=== PATIENT | male | born 1935 | race Two or more races ===

== ENCOUNTER 2017-10-03 16:08 | Inpatient (IN) | payer MEDICARE, OTHER ==
[2017-10-03] MEDS: PANTOPRAZOLE 40 MG INJ IV (20:06)
[2017-10-03 20:12] LABS: ADD MAN DIFF? NO
[2017-10-03 20:13] LABS: BASOPHILS % 0.3 % (0.0-2.0); EOSINOPHILS # 0.1 10^3/ul (0.0-0.5); EOSINOPHILS % 0.7 % (0.0-7.0); HEMATOCRIT 27.6 % (42.0-52.0); HEMOGLOBIN 9.4 g/dl (14.0-18.0); LYMPHOCYTES # 1.1 10^3/ul (0.8-2.9); LYMPHOCYTES % 12.5 % (15.0-51.0); MEAN CORPUSCULAR HEMOGLOBIN 28.9 pg (29.0-33.0); MEAN CORPUSCULAR HGB CONC 34.1 g/dl (32.0-37.0); MEAN CORPUSCULAR VOLUME 84.9 fl (82.0-101.0); MEAN PLATELET VOLUME 9.3 fl (7.4-10.4); MONOCYTES % 11.1 % (0.0-11.0); NEUTROPHIL # 6.7 10^3/ul (1.6-7.5); NEUTROPHILS % 74.7 % (39.0-77.0); PLATELET COUNT 235 10^3/UL (140-415); RED BLOOD COUNT 3.25 10^6/ul (4.70-6.10); RED CELL DISTRIBUTION WIDTH 13.8 % (11.5-14.5)
[2017-10-03 20:31] LABS: INR 1.16; PT RATIO 1.2
[2017-10-03 20:32] LABS: PARTIAL THROMBOPLASTIN TIME 34.8 Sec (25.0-35.0)
[2017-10-03 20:36] LABS: ALANINE AMINOTRANSFERASE 34 IU/L (13-69); ALBUMIN 3.4 g/dl (3.3-4.9); ALBUMIN/GLOBULIN RATIO 1.25; ALKALINE PHOSPHATASE 80 IU/L (42-121); ANION GAP 18 (8-16); ASPARTATE AMINO TRANSFERASE 36 IU/L (15-46); BILIRUBIN,INDIRECT 0.6 mg/dl (0-1.1); BILIRUBIN,TOTAL 0.6 mg/dl (0.2-1.3); BLOOD UREA NITROGEN 21 mg/dl (7-20); CALCIUM 8.9 mg/dl (8.4-10.2); CARBON DIOXIDE 24 mmol/L (21-31); CHLORIDE 95 mmol/L (97-110); CREATININE 1.21 mg/dl (0.61-1.24); GLUCOSE 118 mg/dl (70-220); POTASSIUM 4.5 mmol/L (3.5-5.1); SODIUM 132 mmol/L (135-144); TOTAL PROTEIN 6.1 g/dl (6.1-8.1)
[2017-10-03 20:52] LABS: TROPONIN-I < 0.012 ng/ml (0.00-0.12)
[2017-10-03] MEDS ORDERED: ACETAMINOPHEN 325 MG TAB PO (21:00)
[2017-10-03] MEDS ORDERED: ONDANSETRON 4 MG INJ IV (21:00)
[2017-10-03] MEDS ORDERED: morphine 2 MG INJ IV (21:30)
[2017-10-03] MEDS ORDERED: NACL 0.9% 3 ML SYG IV (21:30)
[2017-10-03] MEDS: SOD CHLORIDE 0.9% 1,000 ML IV (21:39)
[2017-10-03] MEDS: FAMOTIDINE 20 MG INJ IV (21:55)
[2017-10-04 05:55] LABS: ADD MAN DIFF? NO
[2017-10-04 06:03] LABS: BASOPHILS % 0.3 % (0.0-2.0); EOSINOPHILS # 0.1 10^3/ul (0.0-0.5); EOSINOPHILS % 1.3 % (0.0-7.0); HEMATOCRIT 24.4 % (42.0-52.0); HEMOGLOBIN 8.3 g/dl (14.0-18.0); LYMPHOCYTES # 0.9 10^3/ul (0.8-2.9); LYMPHOCYTES % 14.9 % (15.0-51.0); MEAN CORPUSCULAR HEMOGLOBIN 28.9 pg (29.0-33.0); MEAN PLATELET VOLUME 9.9 fl (7.4-10.4); MONOCYTE # 0.9 10^3/ul (0.3-0.9); MONOCYTES % 14.6 % (0.0-11.0); NEUTROPHIL # 4.2 10^3/ul (1.6-7.5); NEUTROPHILS % 68.2 % (39.0-77.0); PLATELET COUNT 221 10^3/UL (140-415); RED BLOOD COUNT 2.87 10^6/ul (4.70-6.10); RED CELL DISTRIBUTION WIDTH 13.9 % (11.5-14.5)
[2017-10-04 06:03] LABS: WHITE BLOOD COUNT 6.1 10^3/ul (4.8-10.8)
[2017-10-04 06:25] LABS: ALANINE AMINOTRANSFERASE 33 IU/L (13-69); ALKALINE PHOSPHATASE 70 IU/L (42-121); ANION GAP 11 (8-16); ASPARTATE AMINO TRANSFERASE 31 IU/L (15-46); BILIRUBIN,INDIRECT 0.7 mg/dl (0-1.1); BILIRUBIN,TOTAL 0.7 mg/dl (0.2-1.3); BLOOD UREA NITROGEN 18 mg/dl (7-20); CALCIUM 8.4 mg/dl (8.4-10.2); CARBON DIOXIDE 24 mmol/L (21-31); CHLORIDE 101 mmol/L (97-110); CREATININE 0.96 mg/dl (0.61-1.24); GLUCOSE 95 mg/dl (70-220); POTASSIUM 4.2 mmol/L (3.5-5.1); SODIUM 132 mmol/L (135-144); TOTAL PROTEIN 5.2 g/dl (6.1-8.1)
[2017-10-04 06:26] LABS: ALBUMIN 2.7 g/dl (3.3-4.9); ALBUMIN/GLOBULIN RATIO 1.08
[2017-10-04 12:49] LABS: OCCULT BLOOD STOOL POSITIVE (NEGATIVE)
[2017-10-04] MEDS: PANTOPRAZOLE 40 MG INJ IV (13:32)
[2017-10-04] MEDS: SOD CHLORIDE 0.9% 1,000 ML IV (13:33)
[2017-10-04] MEDS: PEG/ELECTROLYTES 4L BTL PO (15:04)
[2017-10-04] MEDS: ONDANSETRON 4 MG INJ IV (15:07)
[2017-10-04 19:55] LABS: B-TYPE NATRIURETIC PEPTIDE 407 PG/ML (0-450)
[2017-10-04 20:01] LABS: TROPONIN-I < 0.012 ng/ml (0.00-0.12)
[2017-10-04] MEDS: METOPROLOL (XL) 25 MG TAB PO (21:21)
[2017-10-04] MEDS: ZOLPIDEM 5 MG TAB PO ×2 (23:48)
[2017-10-05 01:49] LABS: TROPONIN-I < 0.012 ng/ml (0.00-0.12)
[2017-10-05 05:39] LABS: ADD MAN DIFF? NO
[2017-10-05 05:41] LABS: BASOPHILS % 0.2 % (0.0-2.0); EOSINOPHILS # 0.1 10^3/ul (0.0-0.5); EOSINOPHILS % 1.7 % (0.0-7.0); HEMATOCRIT 23.4 % (42.0-52.0); HEMOGLOBIN 7.9 g/dl (14.0-18.0); LYMPHOCYTES # 0.8 10^3/ul (0.8-2.9); LYMPHOCYTES % 13.3 % (15.0-51.0); MEAN CORPUSCULAR HEMOGLOBIN 28.8 pg (29.0-33.0); MEAN CORPUSCULAR HGB CONC 33.8 g/dl (32.0-37.0); MEAN CORPUSCULAR VOLUME 85.4 fl (82.0-101.0); MEAN PLATELET VOLUME 9.5 fl (7.4-10.4); MONOCYTE # 0.8 10^3/ul (0.3-0.9); MONOCYTES % 13.3 % (0.0-11.0); NEUTROPHILS % 70.6 % (39.0-77.0); PLATELET COUNT 199 10^3/UL (140-415); RED BLOOD COUNT 2.74 10^6/ul (4.70-6.10); RED CELL DISTRIBUTION WIDTH 14.3 % (11.5-14.5)
[2017-10-05 05:41] LABS: WHITE BLOOD COUNT 5.7 10^3/ul (4.8-10.8)
[2017-10-05 06:00] LABS: ANION GAP 9 (8-16); BLOOD UREA NITROGEN 13 mg/dl (7-20); CALCIUM 8.1 mg/dl (8.4-10.2); CARBON DIOXIDE 27 mmol/L (21-31); CHLORIDE 102 mmol/L (97-110); CREATININE 1.01 mg/dl (0.61-1.24); GLUCOSE 94 mg/dl (70-220); POTASSIUM 4.1 mmol/L (3.5-5.1); SODIUM 134 mmol/L (135-144)
[2017-10-05 06:08] LABS: CHOL/HDL RATIO 6.8 RATIO; HDL CHOLESTEROL 20 mg/dl (31-75); LDL CHOLESTEROL,CALCULATED 99 mg/dl; TRIGLYCERIDES 85 mg/dl (0-149)
[2017-10-05 06:08] LABS: CHOLESTEROL 136 mg/dl (100-200)
[2017-10-05] MEDS: PANTOPRAZOLE 40 MG INJ IV (06:17)
[2017-10-05] MEDS: METOPROLOL (XL) 25 MG TAB PO ×2 (08:31→20:42)
[2017-10-05] MEDS ORDERED: PANTOPRAZOLE (EC) 40 MG TAB PO (09:00)
[2017-10-05] MEDS: SOD CHLORIDE 0.9% 1,000 ML IV (13:10)
[2017-10-05 14:37] LABS: IMMEDIATE SPIN CROSSMATCH 1 2
[2017-10-05] MEDS ORDERED: PHENYLephrine (100 MCG/ML) 5ML SYG (19:06)
[2017-10-05] MEDS: PROPOFOL 40 ML (19:09)
[2017-10-05] MEDS: ZOLPIDEM 5 MG TAB PO (23:22)
[2017-10-06] MEDS: PANTOPRAZOLE 40 MG INJ IV (06:13)
[2017-10-06] MEDS: METOPROLOL (XL) 25 MG TAB PO ×2 (09:04→21:08)
[2017-10-06] MEDS: SOD CHLORIDE 0.9% 1,000 ML IV (09:04)
[2017-10-06 11:16] LABS: ADD MAN DIFF? NO
[2017-10-06 11:21] LABS: ABNORMAL IP MESSAGE 1; BASOPHILS % 0.2 % (0.0-2.0); EOSINOPHILS # 0.1 10^3/ul (0.0-0.5); EOSINOPHILS % 0.7 % (0.0-7.0); HEMATOCRIT 31.9 % (42.0-52.0); HEMOGLOBIN 10.9 g/dl (14.0-18.0); LYMPHOCYTES # 0.6 10^3/ul (0.8-2.9); MEAN CORPUSCULAR HEMOGLOBIN 29.7 pg (29.0-33.0); MEAN CORPUSCULAR HGB CONC 34.2 g/dl (32.0-37.0); MEAN CORPUSCULAR VOLUME 86.9 fl (82.0-101.0); MEAN PLATELET VOLUME 9.6 fl (7.4-10.4); MONOCYTE # 0.9 10^3/ul (0.3-0.9); MONOCYTES % 10.8 % (0.0-11.0); NEUTROPHIL # 6.6 10^3/ul (1.6-7.5); NEUTROPHILS % 80.3 % (39.0-77.0); PLATELET COUNT 233 10^3/UL (140-415); POSITIVE DIFF @See below; RED BLOOD COUNT 3.67 10^6/ul (4.70-6.10); RED CELL DISTRIBUTION WIDTH 13.8 % (11.5-14.5)
[2017-10-06 11:21] LABS: WHITE BLOOD COUNT 8.2 10^3/ul (4.8-10.8)
[2017-10-06] MEDS: ZOLPIDEM 5 MG TAB PO (23:12)
[2017-10-06] MEDS: SOD FERRIC GLUC COMPLX 125 MG in SOD CHLORIDE 0.9% 100 ML IVPB (23:52)
[2017-10-07] MEDS: PANTOPRAZOLE 40 MG INJ IV (05:57)
[2017-10-07 06:19] LABS: ADD MAN DIFF? NO
[2017-10-07 06:32] LABS: BASOPHILS % 0.2 % (0.0-2.0); EOSINOPHILS # 0.1 10^3/ul (0.0-0.5); EOSINOPHILS % 1.6 % (0.0-7.0); HEMATOCRIT 30.5 % (42.0-52.0); HEMOGLOBIN 10.4 g/dl (14.0-18.0); LYMPHOCYTES # 1.1 10^3/ul (0.8-2.9); LYMPHOCYTES % 13.7 % (15.0-51.0); MEAN CORPUSCULAR HEMOGLOBIN 29.1 pg (29.0-33.0); MEAN CORPUSCULAR HGB CONC 34.1 g/dl (32.0-37.0); MEAN CORPUSCULAR VOLUME 85.4 fl (82.0-101.0); MEAN PLATELET VOLUME 9.7 fl (7.4-10.4); MONOCYTE # 1.1 10^3/ul (0.3-0.9); MONOCYTES % 13.9 % (0.0-11.0); NEUTROPHIL # 5.7 10^3/ul (1.6-7.5); NEUTROPHILS % 69.7 % (39.0-77.0); PLATELET COUNT 239 10^3/UL (140-415); RED BLOOD COUNT 3.57 10^6/ul (4.70-6.10); RED CELL DISTRIBUTION WIDTH 13.9 % (11.5-14.5)
[2017-10-07 06:32] LABS: WHITE BLOOD COUNT 8.2 10^3/ul (4.8-10.8)
[2017-10-07 06:52] LABS: ANION GAP 9 (8-16); BLOOD UREA NITROGEN 15 mg/dl (7-20); CALCIUM 8.6 mg/dl (8.4-10.2); CARBON DIOXIDE 30 mmol/L (21-31); CHLORIDE 102 mmol/L (97-110); CREATININE 1.01 mg/dl (0.61-1.24); GLUCOSE 105 mg/dl (70-220); POTASSIUM 4.8 mmol/L (3.5-5.1); SODIUM 136 mmol/L (135-144)
[2017-10-07] MEDS: METOPROLOL (XL) 25 MG TAB PO (08:23)
[2017-10-07] MEDS: SOD FERRIC GLUC COMPLX 125 MG in SOD CHLORIDE 0.9% 100 ML IVPB (14:39)
== END 2017-10-07 16:05 | disposition home or self-care (01) | DRG 378 ==
LOC: MS2 10-04 03:06 → E/R 16:08 → MS2 20:37
PROVIDERS: Internal Medicine
PROC: 0W3P8ZZ Control Bleeding in Gastrointestinal Tract, Via Natural or Artificial Opening Endoscopic (ICD-10-PCS; principal; 2017-10-05 18:00)
PROC: 0DJD8ZZ Inspection of Lower Intestinal Tract, Via Natural or Artificial Opening Endoscopic (ICD-10-PCS; 2017-10-05 18:00)
PROC: 30233N1 Transfusion of Nonautologous Red Blood Cells into Peripheral Vein, Percutaneous Approach (ICD-10-PCS; 2017-10-05 18:00)
DX: K92.2 Gastrointestinal hemorrhage, unspecified (principal); D62 Acute posthemorrhagic anemia; C15.9 Malignant neoplasm of esophagus, unspecified; C16.0 Malignant neoplasm of cardia; I48.0 Paroxysmal atrial fibrillation; I10 Essential (primary) hypertension; K57.30 Diverticulosis of large intestine without perforation or abscess without bleeding; K64.4 Residual hemorrhoidal skin tags; K64.1 Second degree hemorrhoids
CPT/HCPCS: 36415; 36430; 80048; 80053; 80061; 82270; 83880; 84443; 84484; 85025; 85610; 85730; 86850; 86900; 86901; 86920; 88309; 88312; 88313; 93005; 93306; 96374; 96375; 99285-25

== ENCOUNTER 2018-01-02 13:25 | Inpatient (IN) | payer MEDICARE, OTHER ==
[2018-01-02] MEDS: SOD CHLORIDE 0.9% 500 ML IV (13:52)
[2018-01-02 14:06] LABS: ADD MAN DIFF? NO
[2018-01-02 14:15] LABS: BASOPHILS % 0.2 % (0.0-2.0); EOSINOPHILS # 0.1 10^3/ul (0.0-0.5); EOSINOPHILS % 0.3 % (0.0-7.0); HEMATOCRIT 37.4 % (42.0-52.0); HEMOGLOBIN 12.7 g/dl (14.0-18.0); LYMPHOCYTES # 1.3 10^3/ul (0.8-2.9); LYMPHOCYTES % 8.1 % (15.0-51.0); MEAN CORPUSCULAR HEMOGLOBIN 30.2 pg (29.0-33.0); MONOCYTE # 1.3 10^3/ul (0.3-0.9); MONOCYTES % 8.1 % (0.0-11.0); NEUTROPHIL # 12.8 10^3/ul (1.6-7.5); NEUTROPHILS % 81.7 % (39.0-77.0); PLATELET COUNT 157 10^3/UL (140-415); RED CELL DISTRIBUTION WIDTH 19.9 % (11.5-14.5)
[2018-01-02 14:15] LABS: WHITE BLOOD COUNT 15.7 10^3/ul (4.8-10.8)
[2018-01-02 14:34] LABS: ALANINE AMINOTRANSFERASE 52 IU/L (13-69); ALBUMIN 2.8 g/dl (3.3-4.9); ALBUMIN/GLOBULIN RATIO 0.93; ALKALINE PHOSPHATASE 350 IU/L (42-121); ANION GAP 17 (8-16); ASPARTATE AMINO TRANSFERASE 104 IU/L (15-46); BILIRUBIN,INDIRECT 1.7 mg/dl (0-1.1); BILIRUBIN,TOTAL 1.7 mg/dl (0.2-1.3); BLOOD UREA NITROGEN 19 mg/dl (7-20); CALCIUM 8.8 mg/dl (8.4-10.2); CARBON DIOXIDE 20 mmol/L (21-31); CHLORIDE 97 mmol/L (97-110); CREATININE 0.78 mg/dl (0.61-1.24); GLUCOSE 86 mg/dl (70-220); INR 1.23; POTASSIUM 4.7 mmol/L (3.5-5.1); PROTIME 15.7 Sec (11.9-14.9); PT RATIO 1.2; SODIUM 129 mmol/L (135-144); TOTAL PROTEIN 5.8 g/dl (6.1-8.1)
[2018-01-02 14:35] LABS: PARTIAL THROMBOPLASTIN TIME 32.6 Sec (25.0-35.0)
[2018-01-02 14:45] LABS: TROPONIN-I < 0.010 ng/ml (0.000-0.120)
[2018-01-02 14:54] LABS: ADD UMIC NO; UR ASCORBIC ACID NEGATIVE (NEGATIVE); UR BILIRUBIN (Dip) NEGATIVE (NEGATIVE); UR BLOOD (Dip) NEGATIVE (NEGATIVE); UR CLARITY CLEAR (CLEAR); UR COLOR AMBER (YELLOW); UR GLUCOSE (Dip) NEGATIVE (NEGATIVE); UR KETONES (Dip) 1+ mg/dL (NEGATIVE); UR LEUKOCYTE ESTERASE (Dip) NEGATIVE Leu/ul (NEGATIVE); UR NITRITE (Dip) NEGATIVE (NEGATIVE); UR SPECIFIC GRAVITY (Dip) 1.027 (1.003-1.030); UR TOTAL PROTEIN (Dip) NEGATIVE (NEGATIVE); UR UROBILINOGEN (Dip) 2+ mg/dL (NEGATIVE)
[2018-01-02] MEDS: CEFTRIAXONE 1 GM/50 ML (PMX) 50 ML IVPB (15:23)
[2018-01-02] MEDS ORDERED: ACETAMINOPHEN 325 MG TAB PO ×2 (16:00→21:30)
[2018-01-02] MEDS ORDERED: ONDANSETRON 4 MG INJ IV (16:00)
[2018-01-02 16:09] LABS: LACTIC ACID 3.3 mmol/L (0.5-2.0)
[2018-01-02] MEDS: LIDOCAINE 1% (MDV) 10 ML INJ (17:09)
[2018-01-02 17:55] LABS: FLD RBC 0 /uL; FLD WBC 153 /cmm
[2018-01-02 18:06] LABS: FLD CLARITY CLEAR; FLD COLOR YELLOW
[2018-01-02 18:06] LABS: FLD TYPE PARACENTHESIS
[2018-01-02 21:16] LABS: LACTIC ACID 4.2 mmol/L (0.5-2.0)
[2018-01-02] MEDS ORDERED: NACL 0.9% 3 ML SYG IV (21:30)
[2018-01-02] MEDS: SOD CHLORIDE 0.9% 1,000 ML IV (21:58)
[2018-01-02 22:33] LABS: IRON 27 ug/dl (35-150)
[2018-01-02 22:42] LABS: % IRON SATURATION 19 % SAT (22-52); TOTAL IRON BINDING CAPACITY 142 ug/dl (241-421)
[2018-01-02 22:51] LABS: RETICULOCYTE RBC 3.84
[2018-01-02 22:51] LABS: RETICULOCYTE COUNT % 3.4 % (0.5-1.5)
[2018-01-02 22:55] LABS: URIC ACID 6.5 mg/dl (3.1-7.9)
[2018-01-02 22:55] LABS: LACTATE DEHYDROGENASE 917 IU/L (313-618)
[2018-01-02 23:05] LABS: CARCINOEMBRYONIC ANTIGEN 21.5 ng/ml (0.0-5.0)
[2018-01-02 23:51] LABS: ERYTHROCYTE SEDIMENTATION RATE 17 mm/Hr (0-20)
[2018-01-03 00:02] LABS: FOLATE 4.6 ng/ml (2.8-20.0)
[2018-01-03] MEDS: SOD CHLORIDE 0.9% 1,000 ML IV ×2 (05:24→09:57)
[2018-01-03] MEDS: PANTOPRAZOLE (EC) 40 MG TAB PO ×2 (06:32→21:09)
[2018-01-03] MEDS: FAMOTIDINE 20 MG INJ IV ×2 (08:12→21:00)
[2018-01-03] MEDS: ENOXAPARIN 30 MG/0.3 ML SYG SC (08:22)
[2018-01-03 08:25] LABS: ADD MAN DIFF? NO
[2018-01-03] MEDS ORDERED: METOPROLOL (XL) 25 MG TAB PO (08:30)
[2018-01-03 08:33] LABS: WHITE BLOOD COUNT 11.6 10^3/ul (4.8-10.8)
[2018-01-03 08:33] LABS: BASOPHILS % 0.2 % (0.0-2.0); EOSINOPHILS % 0.3 % (0.0-7.0); HEMATOCRIT 35.6 % (42.0-52.0); HEMOGLOBIN 11.6 g/dl (14.0-18.0); LYMPHOCYTES % 8.9 % (15.0-51.0); MEAN CORPUSCULAR HEMOGLOBIN 29.1 pg (29.0-33.0); MEAN CORPUSCULAR HGB CONC 32.6 g/dl (32.0-37.0); MEAN CORPUSCULAR VOLUME 89.2 fl (82.0-101.0); MEAN PLATELET VOLUME 10.8 fl (7.4-10.4); MONOCYTE # 1.1 10^3/ul (0.3-0.9); MONOCYTES % 9.1 % (0.0-11.0); NEUTROPHIL # 9.3 10^3/ul (1.6-7.5); NEUTROPHILS % 79.7 % (39.0-77.0); PLATELET COUNT 147 10^3/UL (140-415); RED BLOOD COUNT 3.99 10^6/ul (4.70-6.10); RED CELL DISTRIBUTION WIDTH 19.9 % (11.5-14.5)
[2018-01-03 08:58] LABS: HEMOGLOBIN A1C 4.6 % (0-5.9)
[2018-01-03 08:58] LABS: ALANINE AMINOTRANSFERASE 51 IU/L (13-69); ALBUMIN 2.4 g/dl (3.3-4.9); ALKALINE PHOSPHATASE 315 IU/L (42-121); ANION GAP 14 (8-16); ASPARTATE AMINO TRANSFERASE 93 IU/L (15-46); BILIRUBIN,INDIRECT 1.2 mg/dl (0-1.1); BILIRUBIN,TOTAL 1.3 mg/dl (0.2-1.3); BLOOD UREA NITROGEN 19 mg/dl (7-20); CALCIUM 8.2 mg/dl (8.4-10.2); CARBON DIOXIDE 20 mmol/L (21-31); CHLORIDE 102 mmol/L (97-110); CREATININE 0.73 mg/dl (0.61-1.24); GLUCOSE 84 mg/dl (70-220); POTASSIUM 4.6 mmol/L (3.5-5.1); SODIUM 131 mmol/L (135-144); TOTAL PROTEIN 4.8 g/dl (6.1-8.1)
[2018-01-03] MEDS: FISH OIL 1,000 MG CAP PO (09:00)
[2018-01-03] MEDS: CHOLECALCIFEROL 1,000 UNIT TAB PO ×2 (09:00→21:00)
[2018-01-03] MEDS ORDERED: [UNRECOGNIZED DRUG - REMARK] XX (09:30)
[2018-01-03 14:35] LABS: ADD UMIC YES; UR ASCORBIC ACID NEGATIVE (NEGATIVE); UR BILIRUBIN (Dip) NEGATIVE (NEGATIVE); UR BLOOD (Dip) NEGATIVE (NEGATIVE); UR CLARITY CLEAR (CLEAR); UR COLOR AMBER (YELLOW); UR GLUCOSE (Dip) NEGATIVE (NEGATIVE); UR KETONES (Dip) 1+ mg/dL (NEGATIVE); UR LEUKOCYTE ESTERASE (Dip) NEGATIVE Leu/ul (NEGATIVE); UR MUCUS FEW /HPF (NONE SEEN); UR NITRITE (Dip) NEGATIVE (NEGATIVE); UR RBC 1 /HPF (0-5); UR SPECIFIC GRAVITY (Dip) 1.027 (1.003-1.030); UR TOTAL PROTEIN (Dip) 1+ mg/dl (NEGATIVE); UR UROBILINOGEN (Dip) 2+ mg/dL (NEGATIVE); UR WBC 2 /HPF (0-5)
[2018-01-03 14:45] LABS: CREATININE,URINE RANDOM 129.98 mg/dl (20-370)
[2018-01-03 14:50] LABS: SODIUM,URINE RANDOM < 13 mmol/L (30-90)
[2018-01-03 15:05] LABS: OSMOLALITY,URINE 850 mOsm/kg (250-1200)
[2018-01-03 15:25] LABS: ANION GAP 15 (8-16); BLOOD UREA NITROGEN 18 mg/dl (7-20); CALCIUM 8.4 mg/dl (8.4-10.2); CARBON DIOXIDE 18 mmol/L (21-31); CHLORIDE 101 mmol/L (97-110); CREATININE 0.63 mg/dl (0.61-1.24); GLUCOSE 76 mg/dl (70-220); POTASSIUM 4.6 mmol/L (3.5-5.1); SODIUM 129 mmol/L (135-144)
[2018-01-03] MEDS ORDERED: VITAMIN A & D 5 GM OINT PACKET TOP (15:32)
[2018-01-03] MEDS: CEFAZOLIN 2 GM/50 ML (PMX) 50 ML IVPB (16:32)
[2018-01-03] MEDS: PROPOFOL 20 ML (16:47)
[2018-01-03] MEDS: FENTAnyl 50 MCG/ML VIAL (16:48)
[2018-01-03] MEDS: CEFTRIAXONE 2 GM/50 ML (PMX) 50 ML IVPB (18:31)
[2018-01-03 19:06] LABS: TROPONIN-I 0.011 ng/ml (0.000-0.120)
[2018-01-03] MEDS: morphine 2 MG INJ IV (21:01)
[2018-01-04 01:25] LABS: TROPONIN-I 0.015 ng/ml (0.000-0.120)
[2018-01-04] MEDS: SOD CHLORIDE 0.9% 1,000 ML IV ×2 (03:23→16:04)
[2018-01-04] MEDS: morphine 2 MG INJ IV ×2 (03:36→21:37)
[2018-01-04] MEDS: PANTOPRAZOLE (EC) 40 MG TAB PO ×2 (05:35→17:28)
[2018-01-04 06:08] LABS: ADD MAN DIFF? NO
[2018-01-04 06:15] LABS: BASOPHILS % 0.2 % (0.0-2.0); EOSINOPHILS % 0.3 % (0.0-7.0); HEMATOCRIT 37.3 % (42.0-52.0); HEMOGLOBIN 12.1 g/dl (14.0-18.0); LYMPHOCYTES % 8.4 % (15.0-51.0); MEAN CORPUSCULAR HEMOGLOBIN 29.2 pg (29.0-33.0); MEAN CORPUSCULAR HGB CONC 32.4 g/dl (32.0-37.0); MEAN CORPUSCULAR VOLUME 90.1 fl (82.0-101.0); MONOCYTE # 1.1 10^3/ul (0.3-0.9); MONOCYTES % 8.7 % (0.0-11.0); NEUTROPHILS % 80.6 % (39.0-77.0); PLATELET COUNT 155 10^3/UL (140-415); RED BLOOD COUNT 4.14 10^6/ul (4.70-6.10); RED CELL DISTRIBUTION WIDTH 20.5 % (11.5-14.5)
[2018-01-04 06:15] LABS: WHITE BLOOD COUNT 12.4 10^3/ul (4.8-10.8)
[2018-01-04 06:54] LABS: ANION GAP 16 (8-16); BLOOD UREA NITROGEN 19 mg/dl (7-20); CALCIUM 8.4 mg/dl (8.4-10.2); CARBON DIOXIDE 19 mmol/L (21-31); CHLORIDE 104 mmol/L (97-110); CREATININE 0.74 mg/dl (0.61-1.24); GLUCOSE 68 mg/dl (70-220); MAGNESIUM 2.2 mg/dl (1.7-2.5); PHOSPHORUS 3.7 mg/dl (2.5-4.9); POTASSIUM 4.7 mmol/L (3.5-5.1); SODIUM 134 mmol/L (135-144)
[2018-01-04] MEDS: CHOLECALCIFEROL 1,000 UNIT TAB PO ×2 (08:55→20:05)
[2018-01-04] MEDS: FAMOTIDINE 20 MG INJ IV ×2 (08:55→20:06)
[2018-01-04] MEDS: FISH OIL 1,000 MG CAP PO (08:55)
[2018-01-04] MEDS: ENOXAPARIN 30 MG/0.3 ML SYG SC (08:57)
[2018-01-04] MEDS: DEXTROSE 5%-0.9% NACL 1,000 ML IV ×3 (09:27→21:37)
[2018-01-04] MEDS: CEFTRIAXONE 2 GM/50 ML (PMX) 50 ML IVPB (15:33)
[2018-01-04] MEDS: METOPROLOL 5 MG INJ IV (17:59)
[2018-01-04] MEDS: APIXABAN 5 MG TABLET PO ×2 (20:07→20:27)
[2018-01-05] MEDS: SOD CHLORIDE 0.9% 1,000 ML IV ×2 (03:02→18:47)
[2018-01-05] MEDS: PANTOPRAZOLE (EC) 40 MG TAB PO ×2 (05:27→17:16)
[2018-01-05] MEDS: morphine 2 MG INJ IV ×2 (05:28→20:52)
[2018-01-05 06:02] LABS: ADD MAN DIFF? NO
[2018-01-05 06:08] LABS: WHITE BLOOD COUNT 10.8 10^3/ul (4.8-10.8)
[2018-01-05 06:08] LABS: BASOPHILS % 0.2 % (0.0-2.0); EOSINOPHILS # 0.1 10^3/ul (0.0-0.5); EOSINOPHILS % 0.5 % (0.0-7.0); HEMATOCRIT 37.6 % (42.0-52.0); HEMOGLOBIN 11.9 g/dl (14.0-18.0); LYMPHOCYTES # 1.1 10^3/ul (0.8-2.9); LYMPHOCYTES % 9.8 % (15.0-51.0); MEAN CORPUSCULAR HEMOGLOBIN 29.3 pg (29.0-33.0); MEAN CORPUSCULAR HGB CONC 31.6 g/dl (32.0-37.0); MEAN CORPUSCULAR VOLUME 92.6 fl (82.0-101.0); MEAN PLATELET VOLUME 10.1 fl (7.4-10.4); MONOCYTE # 0.9 10^3/ul (0.3-0.9); MONOCYTES % 8.6 % (0.0-11.0); NEUTROPHIL # 8.5 10^3/ul (1.6-7.5); NEUTROPHILS % 78.7 % (39.0-77.0); PLATELET COUNT 144 10^3/UL (140-415); RED BLOOD COUNT 4.06 10^6/ul (4.70-6.10)
[2018-01-05 06:40] LABS: ANION GAP 15 (8-16); BLOOD UREA NITROGEN 18 mg/dl (7-20); CALCIUM 8.1 mg/dl (8.4-10.2); CARBON DIOXIDE 16 mmol/L (21-31); CHLORIDE 109 mmol/L (97-110); CREATININE 0.64 mg/dl (0.61-1.24); GLUCOSE 152 mg/dl (70-220); MAGNESIUM 2.2 mg/dl (1.7-2.5); PHOSPHORUS 2.4 mg/dl (2.5-4.9); POTASSIUM 4.4 mmol/L (3.5-5.1); SODIUM 136 mmol/L (135-144)
[2018-01-05] MEDS: DEXTROSE 5%-0.9% NACL 1,000 ML IV ×3 (07:00→23:30)
[2018-01-05] MEDS: CHOLECALCIFEROL 1,000 UNIT TAB PO ×2 (08:13→20:51)
[2018-01-05] MEDS: FISH OIL 1,000 MG CAP PO (08:13)
[2018-01-05] MEDS: FAMOTIDINE 20 MG INJ IV ×2 (08:13→20:51)
[2018-01-05] MEDS: APIXABAN 5 MG TABLET PO (08:13)
[2018-01-05 10:24] LABS: ALANINE AMINOTRANSFERASE 42 IU/L (13-69); ALBUMIN 2.3 g/dl (3.3-4.9); ALKALINE PHOSPHATASE 318 IU/L (42-121); ASPARTATE AMINO TRANSFERASE 98 IU/L (15-46); BILIRUBIN,INDIRECT 0.4 mg/dl (0-1.1); BILIRUBIN,TOTAL 0.4 mg/dl (0.2-1.3); TOTAL PROTEIN 4.9 g/dl (6.1-8.1)
[2018-01-05] MEDS: NEUTRA-PHOS 250 MG PACKET PO (11:57)
[2018-01-05] MEDS ORDERED: FENTAnyl 50 MCG/ML VIAL (15:31)
[2018-01-05] MEDS ORDERED: HEPARIN 1000 UNITS/NS (A-LINE) 1,000 ML (15:50)
[2018-01-05] MEDS ORDERED: LIDOCAINE 1% (MDV) 10 ML INJ (15:50)
[2018-01-05] MEDS ORDERED: IODIXANOL LOCM 100 ML BTL (15:50)
[2018-01-05] MEDS: CEFTRIAXONE 2 GM/50 ML (PMX) 50 ML IVPB (16:19)
[2018-01-05] MEDS: METOPROLOL 5 MG INJ IV (17:16)
[2018-01-05] MEDS: ENOXAPARIN 80 MG/0.8 ML SYG SC (22:23)
[2018-01-06] MEDS: morphine 2 MG INJ IV ×7 (01:09→22:27)
[2018-01-06] MEDS: PANTOPRAZOLE (EC) 40 MG TAB PO ×2 (05:58→17:39)
[2018-01-06] MEDS: DEXTROSE 5%-0.9% NACL 1,000 ML IV (07:05)
[2018-01-06] MEDS: ENOXAPARIN 80 MG/0.8 ML SYG SC ×2 (08:53→21:00)
[2018-01-06] MEDS: FAMOTIDINE 20 MG INJ IV ×2 (08:53→21:31)
[2018-01-06] MEDS: CHOLECALCIFEROL 1,000 UNIT TAB PO ×2 (08:53→21:24)
[2018-01-06] MEDS: FISH OIL 1,000 MG CAP PO (08:53)
[2018-01-06] MEDS ORDERED: VITAMIN A & D 5 GM OINT PACKET TOP (12:39)
[2018-01-06] MEDS: DIGOXIN 500 MCG INJ IV (13:30)
[2018-01-06] MEDS: SOD CHLORIDE 0.9% 500 ML IV (14:38)
[2018-01-06] MEDS: CEFTRIAXONE 2 GM/50 ML (PMX) 50 ML IVPB (16:02)
[2018-01-06] MEDS: METOPROLOL 5 MG INJ IV (16:06)
[2018-01-06] MEDS: ATENOLOL 25 MG TAB PO (21:26)
[2018-01-07] MEDS: morphine 2 MG INJ IV ×4 (03:50→21:52)
[2018-01-07] MEDS: PANTOPRAZOLE (EC) 40 MG TAB PO ×2 (06:37→17:53)
[2018-01-07 07:18] LABS: ADD MAN DIFF? NO
[2018-01-07 07:22] LABS: WHITE BLOOD COUNT 12.2 10^3/ul (4.8-10.8)
[2018-01-07 07:22] LABS: BASOPHILS % 0.2 % (0.0-2.0); EOSINOPHILS # 0.1 10^3/ul (0.0-0.5); EOSINOPHILS % 0.6 % (0.0-7.0); HEMATOCRIT 38.5 % (42.0-52.0); HEMOGLOBIN 12.4 g/dl (14.0-18.0); LYMPHOCYTES # 1.4 10^3/ul (0.8-2.9); MEAN CORPUSCULAR HEMOGLOBIN 29.7 pg (29.0-33.0); MEAN CORPUSCULAR HGB CONC 32.2 g/dl (32.0-37.0); MEAN CORPUSCULAR VOLUME 92.1 fl (82.0-101.0); MEAN PLATELET VOLUME 10.3 fl (7.4-10.4); MONOCYTE # 1.2 10^3/ul (0.3-0.9); MONOCYTES % 10.1 % (0.0-11.0); NEUTROPHIL # 9.2 10^3/ul (1.6-7.5); NEUTROPHILS % 75.2 % (39.0-77.0); PLATELET COUNT 141 10^3/UL (140-415); RED BLOOD COUNT 4.18 10^6/ul (4.70-6.10); RED CELL DISTRIBUTION WIDTH 21.4 % (11.5-14.5)
[2018-01-07 08:03] LABS: ANION GAP 14 (8-16); BLOOD UREA NITROGEN 23 mg/dl (7-20); CALCIUM 8.7 mg/dl (8.4-10.2); CARBON DIOXIDE 21 mmol/L (21-31); CHLORIDE 107 mmol/L (97-110); CREATININE 0.76 mg/dl (0.61-1.24); GLUCOSE 124 mg/dl (70-220); MAGNESIUM 2.3 mg/dl (1.7-2.5); PHOSPHORUS 2.1 mg/dl (2.5-4.9); SODIUM 137 mmol/L (135-144)
[2018-01-07] MEDS: CHOLECALCIFEROL 1,000 UNIT TAB PO ×2 (08:36→21:46)
[2018-01-07] MEDS: FAMOTIDINE 20 MG INJ IV ×2 (08:36→21:46)
[2018-01-07] MEDS: FISH OIL 1,000 MG CAP PO (08:36)
[2018-01-07] MEDS: ATENOLOL 25 MG TAB PO ×2 (08:37→21:51)
[2018-01-07] MEDS: ENOXAPARIN 80 MG/0.8 ML SYG SC (08:46)
[2018-01-07] MEDS: NEUTRA-PHOS 250 MG PACKET GTB ×2 (12:51→21:46)
[2018-01-07] MEDS: CEFTRIAXONE 2 GM/50 ML (PMX) 50 ML IVPB (15:59)
[2018-01-07] MEDS: BISACODYL 10 MG SUPP PR (21:52)
[2018-01-08] MEDS: morphine 2 MG INJ IV ×3 (02:07→22:06)
[2018-01-08] MEDS: PANTOPRAZOLE (EC) 40 MG TAB PO ×2 (05:52→18:39)
[2018-01-08 06:36] LABS: ALBUMIN 2.2 g/dl (3.3-4.9)
[2018-01-08] MEDS: FAMOTIDINE 20 MG INJ IV ×2 (08:39→22:04)
[2018-01-08] MEDS: NEUTRA-PHOS 250 MG PACKET GTB ×2 (08:40→22:04)
[2018-01-08] MEDS: FISH OIL 1,000 MG CAP PO (08:40)
[2018-01-08] MEDS: ATENOLOL 25 MG TAB PO ×2 (08:40→21:00)
[2018-01-08] MEDS: CHOLECALCIFEROL 1,000 UNIT TAB PO ×2 (08:40→22:05)
[2018-01-08 20:39] LABS: ALANINE AMINOTRANSFERASE 59 IU/L (13-69); ALBUMIN 2.4 g/dl (3.3-4.9); ALBUMIN/GLOBULIN RATIO 0.88; ALKALINE PHOSPHATASE 434 IU/L (42-121); ANION GAP 15 (8-16); ASPARTATE AMINO TRANSFERASE 144 IU/L (15-46); BILIRUBIN,INDIRECT 0.9 mg/dl (0-1.1); BLOOD UREA NITROGEN 26 mg/dl (7-20); CALCIUM 8.8 mg/dl (8.4-10.2); CARBON DIOXIDE 22 mmol/L (21-31); CHLORIDE 105 mmol/L (97-110); CREATININE 0.65 mg/dl (0.61-1.24); GLUCOSE 133 mg/dl (70-220); POTASSIUM 5.1 mmol/L (3.5-5.1); SODIUM 137 mmol/L (135-144); TOTAL PROTEIN 5.1 g/dl (6.1-8.1)
[2018-01-08 20:41] LABS: PROTIME 16.4 Sec (11.9-14.9); PT RATIO 1.3
[2018-01-08 23:05] LABS: ADD MAN DIFF? NO
[2018-01-08 23:06] LABS: WHITE BLOOD COUNT 14.4 10^3/ul (4.8-10.8)
[2018-01-08 23:06] LABS: BASOPHILS % 0.2 % (0.0-2.0); EOSINOPHILS # 0.1 10^3/ul (0.0-0.5); EOSINOPHILS % 0.8 % (0.0-7.0); HEMATOCRIT 35.7 % (42.0-52.0); HEMOGLOBIN 11.7 g/dl (14.0-18.0); LYMPHOCYTES # 1.2 10^3/ul (0.8-2.9); LYMPHOCYTES % 8.2 % (15.0-51.0); MEAN CORPUSCULAR HEMOGLOBIN 30.3 pg (29.0-33.0); MEAN CORPUSCULAR HGB CONC 32.8 g/dl (32.0-37.0); MEAN CORPUSCULAR VOLUME 92.5 fl (82.0-101.0); MEAN PLATELET VOLUME 10.9 fl (7.4-10.4); MONOCYTE # 1.3 10^3/ul (0.3-0.9); MONOCYTES % 8.9 % (0.0-11.0); NEUTROPHIL # 11.6 10^3/ul (1.6-7.5); NEUTROPHILS % 80.3 % (39.0-77.0); PLATELET COUNT 151 10^3/UL (140-415); RED BLOOD COUNT 3.86 10^6/ul (4.70-6.10); RED CELL DISTRIBUTION WIDTH 21.1 % (11.5-14.5)
[2018-01-09] MEDS: morphine 2 MG INJ IV ×4 (02:35→22:48)
[2018-01-09] MEDS: LANSOPRAZOLE 30 MG CAP PO ×2 (06:43→18:33)
[2018-01-09 07:02] LABS: ALANINE AMINOTRANSFERASE 63 IU/L (13-69); ALBUMIN 2.2 g/dl (3.3-4.9); ALBUMIN/GLOBULIN RATIO 0.81; ALKALINE PHOSPHATASE 401 IU/L (42-121); ANION GAP 14 (8-16); ASPARTATE AMINO TRANSFERASE 148 IU/L (15-46); BILIRUBIN,INDIRECT 0.7 mg/dl (0-1.1); BILIRUBIN,TOTAL 0.7 mg/dl (0.2-1.3); BLOOD UREA NITROGEN 27 mg/dl (7-20); CALCIUM 8.7 mg/dl (8.4-10.2); CARBON DIOXIDE 22 mmol/L (21-31); CHLORIDE 105 mmol/L (97-110); CREATININE 0.67 mg/dl (0.61-1.24); GLUCOSE 125 mg/dl (70-220); POTASSIUM 5.4 mmol/L (3.5-5.1); SODIUM 136 mmol/L (135-144); TOTAL PROTEIN 4.9 g/dl (6.1-8.1)
[2018-01-09] MEDS: ATENOLOL 25 MG TAB PO ×2 (09:00→20:28)
[2018-01-09] MEDS: NEUTRA-PHOS 250 MG PACKET GTB ×2 (09:16→20:28)
[2018-01-09] MEDS: FAMOTIDINE 20 MG INJ IV ×2 (09:16→20:28)
[2018-01-09] MEDS: CHOLECALCIFEROL 1,000 UNIT TAB PO ×2 (09:16→20:28)
[2018-01-09] MEDS: FISH OIL 1,000 MG CAP PO (09:16)
[2018-01-09 11:04] LABS: POTASSIUM 5.2 mmol/L (3.5-5.1)
[2018-01-09] MEDS: SOD CHLORIDE 0.9% 1,000 ML IV ×2 (11:40→23:30)
[2018-01-09] MEDS: HYOSCYAMINE 0.125 MG TAB GTB ×2 (18:32→23:30)
[2018-01-10] MEDS: morphine 2 MG INJ IV ×3 (02:50→14:31)
[2018-01-10] MEDS: LANSOPRAZOLE 30 MG CAP PO ×2 (06:34→18:06)
[2018-01-10] MEDS: HYOSCYAMINE 0.125 MG TAB GTB ×3 (06:35→18:03)
[2018-01-10 06:51] LABS: ANION GAP 14 (8-16); BLOOD UREA NITROGEN 24 mg/dl (7-20); CALCIUM 8.5 mg/dl (8.4-10.2); CARBON DIOXIDE 23 mmol/L (21-31); CHLORIDE 105 mmol/L (97-110); CREATININE 0.59 mg/dl (0.61-1.24); GLUCOSE 95 mg/dl (70-220); MAGNESIUM 2.1 mg/dl (1.7-2.5); POTASSIUM 5.5 mmol/L (3.5-5.1); SODIUM 136 mmol/L (135-144)
[2018-01-10] MEDS: FAMOTIDINE 20 MG INJ IV ×2 (08:20→22:05)
[2018-01-10] MEDS: NEUTRA-PHOS 250 MG PACKET GTB ×2 (08:20→22:07)
[2018-01-10] MEDS: CHOLECALCIFEROL 1,000 UNIT TAB PO ×2 (08:22→22:05)
[2018-01-10] MEDS: ATENOLOL 25 MG TAB PO ×2 (08:22→22:07)
[2018-01-10] MEDS: FISH OIL 1,000 MG CAP PO (08:22)
[2018-01-10] MEDS: SOD CHLORIDE 0.9% 1,000 ML IV ×2 (14:10→18:19)
[2018-01-10] MEDS: ZINC OXIDE 20% 30 GM OINT TOP (22:00)
[2018-01-11] MEDS: HYOSCYAMINE 0.125 MG TAB GTB ×4 (00:47→17:12)
[2018-01-11] MEDS: morphine 2 MG INJ IV ×5 (02:18→23:03)
[2018-01-11] MEDS: SOD CHLORIDE 0.9% 1,000 ML IV ×4 (03:30→16:21)
[2018-01-11] MEDS: LANSOPRAZOLE 30 MG CAP PO ×2 (06:28→17:13)
[2018-01-11 07:47] LABS: ADD MAN DIFF? NO
[2018-01-11 07:52] LABS: ABNORMAL IP MESSAGE 1; BASOPHILS % 0.2 % (0.0-2.0); EOSINOPHILS # 0.1 10^3/ul (0.0-0.5); EOSINOPHILS % 0.7 % (0.0-7.0); HEMATOCRIT 35.5 % (42.0-52.0); HEMOGLOBIN 11.6 g/dl (14.0-18.0); LYMPHOCYTES # 1.3 10^3/ul (0.8-2.9); LYMPHOCYTES % 10.7 % (15.0-51.0); MEAN CORPUSCULAR HEMOGLOBIN 29.8 pg (29.0-33.0); MEAN CORPUSCULAR HGB CONC 32.7 g/dl (32.0-37.0); MEAN CORPUSCULAR VOLUME 91.3 fl (82.0-101.0); MEAN PLATELET VOLUME 11.1 fl (7.4-10.4); MONOCYTE # 1.3 10^3/ul (0.3-0.9); MONOCYTES % 11.1 % (0.0-11.0); NEUTROPHIL # 8.9 10^3/ul (1.6-7.5); NEUTROPHILS % 75.3 % (39.0-77.0); PLATELET COUNT 165 10^3/UL (140-415); POSITIVE DIFF @See below; RED BLOOD COUNT 3.89 10^6/ul (4.70-6.10); RED CELL DISTRIBUTION WIDTH 22.5 % (11.5-14.5)
[2018-01-11 07:52] LABS: WHITE BLOOD COUNT 11.8 10^3/ul (4.8-10.8)
[2018-01-11 08:14] LABS: ANION GAP 12 (8-16); BLOOD UREA NITROGEN 25 mg/dl (7-20); CALCIUM 8.4 mg/dl (8.4-10.2); CARBON DIOXIDE 22 mmol/L (21-31); CHLORIDE 107 mmol/L (97-110); CREATININE 0.65 mg/dl (0.61-1.24); GLUCOSE 91 mg/dl (70-220); MAGNESIUM 2.1 mg/dl (1.7-2.5); PHOSPHORUS 3.7 mg/dl (2.5-4.9); POTASSIUM 5.4 mmol/L (3.5-5.1); SODIUM 136 mmol/L (135-144)
[2018-01-11 08:17] LABS: ALANINE AMINOTRANSFERASE 60 IU/L (13-69); ALBUMIN 2.2 g/dl (3.3-4.9); ALKALINE PHOSPHATASE 457 IU/L (42-121); ASPARTATE AMINO TRANSFERASE 133 IU/L (15-46); BILIRUBIN,INDIRECT 1.2 mg/dl (0-1.1); BILIRUBIN,TOTAL 1.5 mg/dl (0.2-1.3); TOTAL PROTEIN 4.9 g/dl (6.1-8.1)
[2018-01-11 08:31] LABS: IRON 20 ug/dl (35-150)
[2018-01-11 08:40] LABS: % IRON SATURATION 15 % SAT (22-52); TOTAL IRON BINDING CAPACITY 137 ug/dl (241-421)
[2018-01-11] MEDS: NEUTRA-PHOS 250 MG PACKET GTB ×2 (08:55→21:02)
[2018-01-11] MEDS: FAMOTIDINE 20 MG INJ IV ×2 (08:55→21:02)
[2018-01-11] MEDS: FISH OIL 1,000 MG CAP PO (08:55)
[2018-01-11] MEDS: CHOLECALCIFEROL 1,000 UNIT TAB PO ×2 (08:55→21:02)
[2018-01-11] MEDS: ATENOLOL 25 MG TAB PO ×2 (08:55→21:00)
[2018-01-11] MEDS: ZINC OXIDE 20% 30 GM OINT TOP ×2 (08:56→21:03)
[2018-01-11 11:35] LABS: ADD UMIC YES; UR ASCORBIC ACID 40 mg/dL (NEGATIVE); UR BACTERIA FEW /HPF (NONE SEEN); UR BILIRUBIN (Dip) 1+ mg/dL (NEGATIVE); UR BLOOD (Dip) 1+ mg/dL (NEGATIVE); UR CLARITY SLIGHTLY CLOUDY (CLEAR); UR COLOR AMBER (YELLOW); UR GLUCOSE (Dip) NEGATIVE (NEGATIVE); UR KETONES (Dip) NEGATIVE (NEGATIVE); UR LEUKOCYTE ESTERASE (Dip) TRACE Leu/ul (NEGATIVE); UR MUCUS MANY /HPF (NONE SEEN); UR NITRITE (Dip) NEGATIVE (NEGATIVE); UR RBC 14 /HPF (0-5); UR SPECIFIC GRAVITY (Dip) 1.027 (1.003-1.030); UR TOTAL PROTEIN (Dip) 1+ mg/dl (NEGATIVE); UR UROBILINOGEN (Dip) 2+ mg/dL (NEGATIVE); UR WBC 15 /HPF (0-5)
[2018-01-11 11:45] LABS: CREATININE,URINE RANDOM 112.58 mg/dl (20-370); SODIUM,URINE RANDOM < 13 mmol/L (30-90)
[2018-01-11] MEDS ORDERED: morphine LIQ (10 MG/5 ML) CUP PO (16:30)
[2018-01-11] MEDS: ONDANSETRON 4 MG INJ IV (21:53)
[2018-01-12] MEDS: HYOSCYAMINE 0.125 MG TAB GTB ×4 (00:24→17:57)
[2018-01-12] MEDS: SOD CHLORIDE 0.9% 1,000 ML IV ×3 (01:22→17:57)
[2018-01-12] MEDS: LANSOPRAZOLE 30 MG CAP PO ×2 (05:52→17:57)
[2018-01-12 08:18] LABS: ADD MAN DIFF? NO
[2018-01-12 08:23] LABS: WHITE BLOOD COUNT 12.4 10^3/ul (4.8-10.8)
[2018-01-12 08:23] LABS: ABNORMAL IP MESSAGE 1; BASOPHILS % 0.2 % (0.0-2.0); EOSINOPHILS # 0.1 10^3/ul (0.0-0.5); EOSINOPHILS % 0.6 % (0.0-7.0); HEMATOCRIT 36.5 % (42.0-52.0); HEMOGLOBIN 11.9 g/dl (14.0-18.0); LYMPHOCYTES # 1.3 10^3/ul (0.8-2.9); LYMPHOCYTES % 10.1 % (15.0-51.0); MEAN CORPUSCULAR HEMOGLOBIN 29.8 pg (29.0-33.0); MEAN CORPUSCULAR HGB CONC 32.6 g/dl (32.0-37.0); MEAN CORPUSCULAR VOLUME 91.3 fl (82.0-101.0); MEAN PLATELET VOLUME 11.1 fl (7.4-10.4); MONOCYTE # 1.2 10^3/ul (0.3-0.9); MONOCYTES % 9.7 % (0.0-11.0); NEUTROPHIL # 9.6 10^3/ul (1.6-7.5); NEUTROPHILS % 77.2 % (39.0-77.0); PLATELET COUNT 180 10^3/UL (140-415); POSITIVE DIFF @See below; RED CELL DISTRIBUTION WIDTH 22.7 % (11.5-14.5)
[2018-01-12 08:48] LABS: ANION GAP 14 (8-16); BLOOD UREA NITROGEN 29 mg/dl (7-20); CALCIUM 8.2 mg/dl (8.4-10.2); CARBON DIOXIDE 21 mmol/L (21-31); CHLORIDE 106 mmol/L (97-110); CREATININE 0.69 mg/dl (0.61-1.24); GLUCOSE 110 mg/dl (70-220); MAGNESIUM 2.1 mg/dl (1.7-2.5); POTASSIUM 5.3 mmol/L (3.5-5.1); SODIUM 136 mmol/L (135-144)
[2018-01-12] MEDS: ATENOLOL 25 MG TAB PO ×2 (09:06→20:26)
[2018-01-12] MEDS: NEUTRA-PHOS 250 MG PACKET GTB ×2 (09:06→20:26)
[2018-01-12] MEDS: FAMOTIDINE 20 MG INJ IV ×2 (09:06→20:26)
[2018-01-12] MEDS: CHOLECALCIFEROL 1,000 UNIT TAB PO ×2 (09:06→20:26)
[2018-01-12] MEDS: FISH OIL 1,000 MG CAP PO (09:06)
[2018-01-12] MEDS: ZINC OXIDE 20% 30 GM OINT TOP ×2 (09:08→20:30)
[2018-01-12] MEDS: morphine 2 MG INJ IV ×2 (18:06→22:06)
[2018-01-13] MEDS: SOD CHLORIDE 0.9% 1,000 ML IV ×3 (00:30→21:01)
[2018-01-13] MEDS: morphine 2 MG INJ IV ×4 (02:05→21:33)
[2018-01-13] MEDS: HYOSCYAMINE 0.125 MG TAB GTB ×5 (05:40→23:30)
[2018-01-13] MEDS: LANSOPRAZOLE 30 MG CAP PO ×2 (05:41→18:36)
[2018-01-13 06:40] LABS: ADD MAN DIFF? NO
[2018-01-13 06:50] LABS: WHITE BLOOD COUNT 15.8 10^3/ul (4.8-10.8)
[2018-01-13 06:50] LABS: ABNORMAL IP MESSAGE 1; BASOPHILS % 0.3 % (0.0-2.0); EOSINOPHILS # 0.1 10^3/ul (0.0-0.5); EOSINOPHILS % 0.6 % (0.0-7.0); HEMATOCRIT 37.8 % (42.0-52.0); HEMOGLOBIN 12.2 g/dl (14.0-18.0); LYMPHOCYTES # 1.6 10^3/ul (0.8-2.9); LYMPHOCYTES % 9.8 % (15.0-51.0); MEAN CORPUSCULAR HGB CONC 32.3 g/dl (32.0-37.0); MEAN CORPUSCULAR VOLUME 93.1 fl (82.0-101.0); MEAN PLATELET VOLUME 11.6 fl (7.4-10.4); MONOCYTE # 1.6 10^3/ul (0.3-0.9); MONOCYTES % 10.1 % (0.0-11.0); NEUTROPHIL # 12.1 10^3/ul (1.6-7.5); NEUTROPHILS % 76.3 % (39.0-77.0); PLATELET COUNT 212 10^3/UL (140-415); POSITIVE DIFF @See below; RED BLOOD COUNT 4.06 10^6/ul (4.70-6.10); RED CELL DISTRIBUTION WIDTH 22.7 % (11.5-14.5)
[2018-01-13 07:23] LABS: ALANINE AMINOTRANSFERASE 64 IU/L (13-69); ALBUMIN 1.9 g/dl (3.3-4.9); ALKALINE PHOSPHATASE 587 IU/L (42-121); ASPARTATE AMINO TRANSFERASE 153 IU/L (15-46); BILIRUBIN,INDIRECT 0.6 mg/dl (0-1.1); BILIRUBIN,TOTAL 0.8 mg/dl (0.2-1.3); TOTAL PROTEIN 4.5 g/dl (6.1-8.1)
[2018-01-13 07:38] LABS: ANION GAP 15 (8-16); BLOOD UREA NITROGEN 33 mg/dl (7-20); CALCIUM 8.2 mg/dl (8.4-10.2); CARBON DIOXIDE 19 mmol/L (21-31); CHLORIDE 107 mmol/L (97-110); CREATININE 0.77 mg/dl (0.61-1.24); GLUCOSE 117 mg/dl (70-220); SODIUM 136 mmol/L (135-144)
[2018-01-13] MEDS: NEUTRA-PHOS 250 MG PACKET GTB ×2 (09:00→20:59)
[2018-01-13] MEDS: FISH OIL 1,000 MG CAP PO (09:00)
[2018-01-13] MEDS: ATENOLOL 25 MG TAB PO ×2 (09:00→21:00)
[2018-01-13] MEDS: CHOLECALCIFEROL 1,000 UNIT TAB PO ×2 (09:01→21:01)
[2018-01-13] MEDS: ZINC OXIDE 20% 30 GM OINT TOP ×2 (09:02→21:04)
[2018-01-13] MEDS: FAMOTIDINE 20 MG INJ IV ×2 (09:07→20:59)
[2018-01-13] MEDS: ONDANSETRON 4 MG INJ IV (12:49)
[2018-01-13 16:11] LABS: INR 1.33; PROTIME 16.7 Sec (11.9-14.9); PT RATIO 1.3
[2018-01-14] MEDS: morphine 2 MG INJ IV ×4 (05:20→21:36)
[2018-01-14] MEDS: HYOSCYAMINE 0.125 MG TAB GTB ×3 (05:28→18:47)
[2018-01-14] MEDS: LANSOPRAZOLE 30 MG CAP PO ×2 (05:28→18:49)
[2018-01-14 07:24] LABS: ADD MAN DIFF? NO
[2018-01-14 07:25] LABS: ABNORMAL IP MESSAGE 1; BASOPHIL # 0.1 10^3/ul (0.0-0.1); BASOPHILS % 0.3 % (0.0-2.0); EOSINOPHILS % 0.2 % (0.0-7.0); HEMATOCRIT 38.5 % (42.0-52.0); HEMOGLOBIN 12.5 g/dl (14.0-18.0); LYMPHOCYTES # 1.3 10^3/ul (0.8-2.9); LYMPHOCYTES % 7.3 % (15.0-51.0); MEAN CORPUSCULAR HEMOGLOBIN 29.9 pg (29.0-33.0); MEAN CORPUSCULAR HGB CONC 32.5 g/dl (32.0-37.0); MEAN CORPUSCULAR VOLUME 92.1 fl (82.0-101.0); MEAN PLATELET VOLUME 11.6 fl (7.4-10.4); MONOCYTE # 1.7 10^3/ul (0.3-0.9); MONOCYTES % 9.5 % (0.0-11.0); NEUTROPHIL # 13.9 10^3/ul (1.6-7.5); NEUTROPHILS % 78.6 % (39.0-77.0); NUCLEATED RED BLOOD CELLS% 0.1 /100WBC (0.0-0.0); PLATELET COUNT 231 10^3/UL (140-415); POSITIVE DIFF @See below; RED BLOOD COUNT 4.18 10^6/ul (4.70-6.10); RED CELL DISTRIBUTION WIDTH 22.7 % (11.5-14.5)
[2018-01-14 07:25] LABS: WHITE BLOOD COUNT 17.7 10^3/ul (4.8-10.8)
[2018-01-14 08:04] LABS: ANION GAP 15 (8-16); BLOOD UREA NITROGEN 38 mg/dl (7-20); CALCIUM 8.3 mg/dl (8.4-10.2); CARBON DIOXIDE 17 mmol/L (21-31); CHLORIDE 109 mmol/L (97-110); CREATININE 0.72 mg/dl (0.61-1.24); GLUCOSE 102 mg/dl (70-220); SODIUM 136 mmol/L (135-144)
[2018-01-14 08:21] LABS: POTASSIUM 5.4 mmol/L (3.5-5.1)
[2018-01-14 08:38] LABS: GAMMA GLUTAMYL TRANSPEPTIDASE 787 IU/L (0-50)
[2018-01-14] MEDS: FAMOTIDINE 20 MG INJ IV ×2 (09:15→21:29)
[2018-01-14] MEDS: FISH OIL 1,000 MG CAP PO (09:15)
[2018-01-14] MEDS: CHOLECALCIFEROL 1,000 UNIT TAB PO ×2 (09:15→21:30)
[2018-01-14] MEDS: NEUTRA-PHOS 250 MG PACKET GTB ×3 (09:15→21:29)
[2018-01-14] MEDS: ATENOLOL 25 MG TAB PO ×2 (09:16→21:00)
[2018-01-14] MEDS: ZINC OXIDE 20% 30 GM OINT TOP ×2 (09:17→21:54)
[2018-01-14] MEDS: LIDOCAINE 1% (MPF) 5 ML VIAL (12:37)
[2018-01-14] MEDS: CEFEPIME 1GM/50 ML (PMX) 50 ML IVPB ×2 (13:23→21:29)
[2018-01-14] MEDS: VANCOMYCIN 1.5 GM in SOD CHLORIDE 0.9% 250 ML IVPB (14:23)
[2018-01-14 15:36] LABS: ADD UMIC YES; UR ASCORBIC ACID NEGATIVE (NEGATIVE); UR BACTERIA FEW /HPF (NONE SEEN); UR BILIRUBIN (Dip) NEGATIVE (NEGATIVE); UR BLOOD (Dip) 2+ mg/dL (NEGATIVE); UR CLARITY SLIGHTLY CLOUDY (CLEAR); UR COLOR AMBER (YELLOW); UR GLUCOSE (Dip) NEGATIVE (NEGATIVE); UR HYALINE CAST MODERATE /HPF (NONE SEEN); UR KETONES (Dip) NEGATIVE (NEGATIVE); UR LEUKOCYTE ESTERASE (Dip) TRACE Leu/ul (NEGATIVE); UR MUCUS MANY /HPF (NONE SEEN); UR NITRITE (Dip) NEGATIVE (NEGATIVE); UR RBC 42 /HPF (0-5); UR SPECIFIC GRAVITY (Dip) 1.024 (1.003-1.030); UR TOTAL PROTEIN (Dip) 1+ mg/dl (NEGATIVE); UR UROBILINOGEN (Dip) 2+ mg/dL (NEGATIVE); UR WBC 45 /HPF (0-5)
[2018-01-14 16:47] LABS: FLD MN% 20.8 %; FLD PMN% 79.2 %; FLD RBC 0 /uL; FLD WBC 831 /cmm
[2018-01-14 16:52] LABS: FLUID LD 198 U/L; FLUID TYPE PARACENTESIS FLUID
[2018-01-14 16:53] LABS: FLUID AMYLASE < 30 U/L; FLUID TYPE PARACENTESIS FLUID
[2018-01-14] MEDS: morphine LIQ (10 MG/5 ML) CUP PO (17:15)
[2018-01-14 17:43] LABS: FLD TYPE PARACENTHESIS
[2018-01-14 17:43] LABS: FLD CLARITY CLOUDY
[2018-01-14 17:44] LABS: FLD COLOR YELLOW
[2018-01-14] MEDS: SOD CHLORIDE 0.9% 1,000 ML IV (21:29)
[2018-01-15] MEDS: HYOSCYAMINE 0.125 MG TAB GTB ×4 (00:28→17:41)
[2018-01-15] MEDS: ZOLPIDEM 5 MG TAB PO ×2 (00:43→22:44)
[2018-01-15] MEDS: SOD CHLORIDE 0.9% 1,000 ML IV ×2 (00:47→15:24)
[2018-01-15] MEDS: LANSOPRAZOLE 30 MG CAP PO ×2 (06:30→17:41)
[2018-01-15 06:35] LABS: ADD MAN DIFF? NO
[2018-01-15 06:41] LABS: WHITE BLOOD COUNT 15.4 10^3/ul (4.8-10.8)
[2018-01-15 06:41] LABS: ABNORMAL IP MESSAGE 1; BASOPHIL # 0.1 10^3/ul (0.0-0.1); BASOPHILS % 0.3 % (0.0-2.0); EOSINOPHILS # 0.1 10^3/ul (0.0-0.5); EOSINOPHILS % 0.5 % (0.0-7.0); HEMATOCRIT 37.8 % (42.0-52.0); HEMOGLOBIN 12.5 g/dl (14.0-18.0); LYMPHOCYTES # 1.3 10^3/ul (0.8-2.9); LYMPHOCYTES % 8.3 % (15.0-51.0); MEAN CORPUSCULAR HEMOGLOBIN 30.9 pg (29.0-33.0); MEAN CORPUSCULAR HGB CONC 33.1 g/dl (32.0-37.0); MEAN CORPUSCULAR VOLUME 93.6 fl (82.0-101.0); MONOCYTE # 1.5 10^3/ul (0.3-0.9); MONOCYTES % 9.8 % (0.0-11.0); NEUTROPHIL # 11.9 10^3/ul (1.6-7.5); NEUTROPHILS % 76.9 % (39.0-77.0); PLATELET COUNT 208 10^3/UL (140-415); POSITIVE DIFF @See below; RED BLOOD COUNT 4.04 10^6/ul (4.70-6.10); RED CELL DISTRIBUTION WIDTH 23.1 % (11.5-14.5)
[2018-01-15] MEDS: morphine 2 MG INJ IV ×4 (06:46→22:07)
[2018-01-15 07:04] LABS: ANION GAP 14 (8-16); BLOOD UREA NITROGEN 42 mg/dl (7-20); CALCIUM 8.3 mg/dl (8.4-10.2); CARBON DIOXIDE 18 mmol/L (21-31); CHLORIDE 110 mmol/L (97-110); CREATININE 0.82 mg/dl (0.61-1.24); GLUCOSE 117 mg/dl (70-220); POTASSIUM 5.2 mmol/L (3.5-5.1); SODIUM 137 mmol/L (135-144)
[2018-01-15 07:29] LABS: ALANINE AMINOTRANSFERASE 58 IU/L (13-69); ALBUMIN 2.1 g/dl (3.3-4.9); ALKALINE PHOSPHATASE 503 IU/L (42-121); ASPARTATE AMINO TRANSFERASE 123 IU/L (15-46); BILIRUBIN,INDIRECT 0.7 mg/dl (0-1.1); BILIRUBIN,TOTAL 1.2 mg/dl (0.2-1.3); TOTAL PROTEIN 4.8 g/dl (6.1-8.1)
[2018-01-15 07:39] LABS: ALPHA FETOPROTEIN 5.77 IU/L (0.00-7.21)
[2018-01-15] MEDS: VANCOMYCIN IV PER PHARMACY XX ×2 (07:50→10:10)
[2018-01-15] MEDS: ATENOLOL 25 MG TAB PO ×2 (08:47→21:00)
[2018-01-15] MEDS: FAMOTIDINE 20 MG INJ IV ×2 (08:48→21:59)
[2018-01-15] MEDS: CHOLECALCIFEROL 1,000 UNIT TAB PO ×2 (08:48→21:59)
[2018-01-15] MEDS: FISH OIL 1,000 MG CAP PO (08:48)
[2018-01-15] MEDS: ZINC OXIDE 20% 30 GM OINT TOP ×2 (08:48→22:01)
[2018-01-15] MEDS: CEFEPIME 1GM/50 ML (PMX) 50 ML IVPB ×2 (08:48→21:59)
[2018-01-15] MEDS: VANCOMYCIN 1 GM 250 ML IVPB (10:10)
[2018-01-15 18:32] LABS: ADD UMIC YES; UR ASCORBIC ACID NEGATIVE (NEGATIVE); UR BACTERIA FEW /HPF (NONE SEEN); UR BILIRUBIN (Dip) NEGATIVE (NEGATIVE); UR BLOOD (Dip) 3+ mg/dL (NEGATIVE); UR CLARITY CLOUDY (CLEAR); UR COLOR RED (YELLOW); UR GLUCOSE (Dip) NEGATIVE (NEGATIVE); UR KETONES (Dip) NEGATIVE (NEGATIVE); UR LEUKOCYTE ESTERASE (Dip) NEGATIVE Leu/ul (NEGATIVE); UR NITRITE (Dip) NEGATIVE (NEGATIVE); UR NONSQUAMOUS EPITHELIAL CELL 1 /HPF (NONE SEEN); UR RBC > 182 /HPF (0-5); UR SPECIFIC GRAVITY (Dip) 1.025 (1.003-1.030); UR TOTAL PROTEIN (Dip) 2+ mg/dl (NEGATIVE); UR UROBILINOGEN (Dip) 2+ mg/dL (NEGATIVE); UR WBC > 182 /HPF (0-5)
[2018-01-16] MEDS: HYOSCYAMINE 0.125 MG TAB GTB ×4 (01:55→17:57)
[2018-01-16] MEDS: morphine 2 MG INJ IV ×5 (02:05→21:28)
[2018-01-16] MEDS: LANSOPRAZOLE 30 MG CAP PO ×2 (05:51→17:54)
[2018-01-16] MEDS: SOD CHLORIDE 0.9% 1,000 ML IV (05:52)
[2018-01-16 08:43] LABS: ADD MAN DIFF? NO
[2018-01-16] MEDS: FISH OIL 1,000 MG CAP PO (08:50)
[2018-01-16] MEDS: CHOLECALCIFEROL 1,000 UNIT TAB PO ×2 (08:50→21:47)
[2018-01-16] MEDS: FAMOTIDINE 20 MG INJ IV ×2 (08:51→21:46)
[2018-01-16] MEDS: CEFEPIME 1GM/50 ML (PMX) 50 ML IVPB ×2 (08:51→21:47)
[2018-01-16] MEDS: ATENOLOL 25 MG TAB PO ×2 (08:52→21:00)
[2018-01-16 08:55] LABS: WHITE BLOOD COUNT 14.1 10^3/ul (4.8-10.8)
[2018-01-16 08:55] LABS: ABNORMAL IP MESSAGE 1; BASOPHILS % 0.3 % (0.0-2.0); EOSINOPHILS # 0.1 10^3/ul (0.0-0.5); EOSINOPHILS % 0.6 % (0.0-7.0); HEMATOCRIT 36.4 % (42.0-52.0); HEMOGLOBIN 12.1 g/dl (14.0-18.0); LYMPHOCYTES # 1.4 10^3/ul (0.8-2.9); MEAN CORPUSCULAR HEMOGLOBIN 30.9 pg (29.0-33.0); MEAN CORPUSCULAR HGB CONC 33.2 g/dl (32.0-37.0); MEAN CORPUSCULAR VOLUME 93.1 fl (82.0-101.0); MEAN PLATELET VOLUME 11.4 fl (7.4-10.4); MONOCYTE # 1.4 10^3/ul (0.3-0.9); MONOCYTES % 9.8 % (0.0-11.0); NEUTROPHIL # 10.6 10^3/ul (1.6-7.5); NEUTROPHILS % 75.2 % (39.0-77.0); NUCLEATED RED BLOOD CELLS% 0.1 /100WBC (0.0-0.0); PLATELET COUNT 219 10^3/UL (140-415); POSITIVE DIFF @See below; RED BLOOD COUNT 3.91 10^6/ul (4.70-6.10); RED CELL DISTRIBUTION WIDTH 23.5 % (11.5-14.5)
[2018-01-16] MEDS: VANCOMYCIN IV PER PHARMACY XX (09:00)
[2018-01-16] MEDS: ZINC OXIDE 20% 30 GM OINT TOP ×2 (09:15→21:46)
[2018-01-16 09:46] LABS: ANION GAP 15 (8-16); BLOOD UREA NITROGEN 45 mg/dl (7-20); CALCIUM 8.3 mg/dl (8.4-10.2); CARBON DIOXIDE 16 mmol/L (21-31); CHLORIDE 109 mmol/L (97-110); CREATININE 0.75 mg/dl (0.61-1.24); GLUCOSE 109 mg/dl (70-220); POTASSIUM 5.3 mmol/L (3.5-5.1); SODIUM 135 mmol/L (135-144)
[2018-01-16 09:54] LABS: PHOSPHORUS 3.9 mg/dl (2.5-4.9)
[2018-01-16 09:54] LABS: MAGNESIUM 2.2 mg/dl (1.7-2.5)
[2018-01-16] MEDS: VANCOMYCIN 1 GM 250 ML IVPB (10:14)
[2018-01-16] MEDS: NA POLYST SULFON 15 GM/60 ML BTL PO (10:14)
[2018-01-16 11:53] LABS: POTASSIUM,URINE RANDOM 40.5 mmol/L (25-125)
[2018-01-16 11:54] LABS: SODIUM,URINE RANDOM < 13 mmol/L (30-90)
[2018-01-16] MEDS ORDERED: morphine LIQ (10 MG/5 ML) CUP PO (16:30)
[2018-01-16] MEDS ORDERED: morphine LIQ (10 MG/5 ML) CUP GTB (16:30)
[2018-01-16 16:52] LABS: OSMOLALITY,URINE 678 mOsm/kg (250-1200)
[2018-01-16] MEDS ORDERED: BARIUM SULF 2% 450 ML BTL (BERRY SMOOTHIE) PO (17:30)
[2018-01-16] MEDS ORDERED: morphine 2 MG INJ IV (17:30)
[2018-01-16] MEDS: LACTULOSE 30ML CUP GTB (17:54)
[2018-01-16] MEDS: ALBUMIN HUMAN 25% 50 ML IV (17:57)
[2018-01-16] MEDS: ONDANSETRON 4 MG INJ IV (19:07)
[2018-01-16] MEDS: ZOLPIDEM 5 MG TAB PO (23:12)
[2018-01-17] MEDS: morphine 2 MG INJ IV ×5 (01:43→22:40)
[2018-01-17] MEDS: ALBUMIN HUMAN 25% 50 ML IV ×2 (01:43→09:51)
[2018-01-17 06:03] LABS: ADD MAN DIFF? NO
[2018-01-17 06:11] LABS: ABNORMAL IP MESSAGE 1; BASOPHILS % 0.3 % (0.0-2.0); EOSINOPHILS # 0.1 10^3/ul (0.0-0.5); EOSINOPHILS % 0.6 % (0.0-7.0); HEMATOCRIT 34.2 % (42.0-52.0); HEMOGLOBIN 11.3 g/dl (14.0-18.0); LYMPHOCYTES # 1.3 10^3/ul (0.8-2.9); LYMPHOCYTES % 8.8 % (15.0-51.0); MEAN CORPUSCULAR HEMOGLOBIN 31.1 pg (29.0-33.0); MEAN CORPUSCULAR VOLUME 94.2 fl (82.0-101.0); MEAN PLATELET VOLUME 11.3 fl (7.4-10.4); MONOCYTE # 1.6 10^3/ul (0.3-0.9); MONOCYTES % 11.2 % (0.0-11.0); NEUTROPHIL # 10.8 10^3/ul (1.6-7.5); NEUTROPHILS % 75.5 % (39.0-77.0); PLATELET COUNT 190 10^3/UL (140-415); POSITIVE DIFF @See below; RED BLOOD COUNT 3.63 10^6/ul (4.70-6.10); RED CELL DISTRIBUTION WIDTH 23.6 % (11.5-14.5)
[2018-01-17 06:11] LABS: WHITE BLOOD COUNT 14.2 10^3/ul (4.8-10.8)
[2018-01-17 06:29] LABS: ANION GAP 17 (8-16); BLOOD UREA NITROGEN 51 mg/dl (7-20); CALCIUM 8.9 mg/dl (8.4-10.2); CARBON DIOXIDE 17 mmol/L (21-31); CHLORIDE 109 mmol/L (97-110); CREATININE 1.02 mg/dl (0.61-1.24); GLUCOSE 122 mg/dl (70-220); MAGNESIUM 2.2 mg/dl (1.7-2.5); PHOSPHORUS 4.2 mg/dl (2.5-4.9); POTASSIUM 4.8 mmol/L (3.5-5.1); SODIUM 138 mmol/L (135-144)
[2018-01-17 06:30] LABS: ALANINE AMINOTRANSFERASE 76 IU/L (13-69); ALBUMIN 2.2 g/dl (3.3-4.9); ALKALINE PHOSPHATASE 639 IU/L (42-121); ASPARTATE AMINO TRANSFERASE 209 IU/L (15-46); BILIRUBIN,INDIRECT 0.4 mg/dl (0-1.1); BILIRUBIN,TOTAL 1.4 mg/dl (0.2-1.3); TOTAL PROTEIN 4.7 g/dl (6.1-8.1)
[2018-01-17] MEDS: LACTULOSE 30ML CUP GTB ×2 (06:39→18:14)
[2018-01-17] MEDS: LANSOPRAZOLE 30 MG CAP PO ×2 (06:39→18:13)
[2018-01-17] MEDS: HYOSCYAMINE 0.125 MG TAB GTB ×4 (06:39→18:13)
[2018-01-17] MEDS: CEFEPIME 1GM/50 ML (PMX) 50 ML IVPB (08:56)
[2018-01-17] MEDS: FAMOTIDINE 20 MG INJ IV ×2 (08:56→20:55)
[2018-01-17] MEDS: FISH OIL 1,000 MG CAP PO (08:56)
[2018-01-17] MEDS: ATENOLOL 25 MG TAB PO ×2 (08:56→21:00)
[2018-01-17] MEDS: CHOLECALCIFEROL 1,000 UNIT TAB PO ×2 (08:56→21:19)
[2018-01-17] MEDS: VANCOMYCIN IV PER PHARMACY XX (08:57)
[2018-01-17] MEDS: ZINC OXIDE 20% 30 GM OINT TOP ×2 (08:57→21:23)
[2018-01-17] MEDS: VANCOMYCIN 1 GM 250 ML IVPB (10:45)
[2018-01-17] MEDS: LEVOFLOXACIN 500MG/D5W (PMX) 100 ML IVPB (11:30)
[2018-01-17] MEDS: AMPICILLIN 1 GM/NS (PMX) 50 ML IVPB ×2 (14:22→21:00)
[2018-01-17] MEDS: DIPHENHYDRAMINE 25 MG CAP PO ×2 (15:49→21:19)
[2018-01-17] MEDS: NA PHOSPHATE/BIPHOS 133 ML ENEMA PR (17:55)
[2018-01-17 18:13] LABS: ADD UMIC YES; UR ASCORBIC ACID NEGATIVE (NEGATIVE); UR BILIRUBIN (Dip) 1+ mg/dL (NEGATIVE); UR BLOOD (Dip) 3+ mg/dL (NEGATIVE); UR CLARITY CLOUDY (CLEAR); UR COLOR AMBER (YELLOW); UR GLUCOSE (Dip) NEGATIVE (NEGATIVE); UR KETONES (Dip) NEGATIVE (NEGATIVE); UR LEUKOCYTE ESTERASE (Dip) NEGATIVE Leu/ul (NEGATIVE); UR MUCUS MODERATE /HPF (NONE SEEN); UR NITRITE (Dip) NEGATIVE (NEGATIVE); UR RBC > 182 /HPF (0-5); UR SPECIFIC GRAVITY (Dip) 1.024 (1.003-1.030); UR SQUAMOUS EPITHELIAL CELL FEW /HPF (FEW); UR TOTAL PROTEIN (Dip) 1+ mg/dl (NEGATIVE); UR UROBILINOGEN (Dip) 2+ mg/dL (NEGATIVE); UR WBC 38 /HPF (0-5)
[2018-01-18] MEDS: HYOSCYAMINE 0.125 MG TAB GTB ×5 (01:00→23:22)
[2018-01-18] MEDS: AMPICILLIN 1 GM/NS (PMX) 50 ML IVPB ×3 (05:24→20:16)
[2018-01-18] MEDS: LANSOPRAZOLE 30 MG CAP PO ×2 (05:25→17:29)
[2018-01-18] MEDS: morphine 2 MG INJ IV ×3 (05:49→22:30)
[2018-01-18] MEDS: IOHEXOL 14.3 MG(I)/ML (ADULT) BTL PO (07:35)
[2018-01-18 08:44] LABS: ADD MAN DIFF? NO
[2018-01-18] MEDS: CHOLECALCIFEROL 1,000 UNIT TAB PO ×2 (08:48→20:17)
[2018-01-18] MEDS: FISH OIL 1,000 MG CAP PO (08:48)
[2018-01-18] MEDS: FAMOTIDINE 20 MG INJ IV ×2 (08:48→20:16)
[2018-01-18] MEDS: ATENOLOL 25 MG TAB PO ×2 (08:48→20:17)
[2018-01-18 08:49] LABS: ABNORMAL IP MESSAGE 1; BASOPHILS % 0.3 % (0.0-2.0); EOSINOPHILS # 0.1 10^3/ul (0.0-0.5); EOSINOPHILS % 0.5 % (0.0-7.0); HEMATOCRIT 34.1 % (42.0-52.0); HEMOGLOBIN 11.4 g/dl (14.0-18.0); LYMPHOCYTES # 1.2 10^3/ul (0.8-2.9); LYMPHOCYTES % 8.8 % (15.0-51.0); MEAN CORPUSCULAR HEMOGLOBIN 31.7 pg (29.0-33.0); MEAN CORPUSCULAR HGB CONC 33.4 g/dl (32.0-37.0); MEAN CORPUSCULAR VOLUME 94.7 fl (82.0-101.0); MEAN PLATELET VOLUME 11.7 fl (7.4-10.4); MONOCYTE # 1.4 10^3/ul (0.3-0.9); MONOCYTES % 10.6 % (0.0-11.0); NEUTROPHILS % 75.8 % (39.0-77.0); NUCLEATED RED BLOOD CELLS% 0.2 /100WBC (0.0-0.0); PLATELET COUNT 176 10^3/UL (140-415); POSITIVE DIFF @See below; RED CELL DISTRIBUTION WIDTH 24.1 % (11.5-14.5)
[2018-01-18 08:49] LABS: WHITE BLOOD COUNT 13.2 10^3/ul (4.8-10.8)
[2018-01-18] MEDS: ZINC OXIDE 20% 30 GM OINT TOP ×2 (08:49→20:17)
[2018-01-18 09:11] LABS: ANION GAP 15 (8-16); BLOOD UREA NITROGEN 56 mg/dl (7-20); CALCIUM 8.9 mg/dl (8.4-10.2); CARBON DIOXIDE 17 mmol/L (21-31); CHLORIDE 110 mmol/L (97-110); CREATININE 1.12 mg/dl (0.61-1.24); GLUCOSE 82 mg/dl (70-220); POTASSIUM 4.8 mmol/L (3.5-5.1); SODIUM 137 mmol/L (135-144)
[2018-01-18] MEDS: LEVOFLOXACIN 500MG/D5W (PMX) 100 ML IVPB (11:10)
[2018-01-18] MEDS: LACTULOSE 30ML CUP GTB (13:39)
[2018-01-18] MEDS: DIPHENHYDRAMINE 25 MG CAP PO (13:39)
[2018-01-18] MEDS: traMADol 50 MG TAB GTB (17:30)
[2018-01-18] MEDS: ALBUMIN HUMAN 25% 100 ML IV (22:30)
[2018-01-18] MEDS: ZOLPIDEM 5 MG TAB PO ×2 (23:22)
[2018-01-19] MEDS: morphine (DRIP) 100 MG/100 ML 100 ML IV ×2 (01:39→09:59)
[2018-01-19] MEDS: AMPICILLIN 1 GM/NS (PMX) 50 ML IVPB ×2 (03:44→11:47)
[2018-01-19] MEDS: HYOSCYAMINE 0.125 MG TAB GTB ×4 (03:44→20:21)
[2018-01-19] MEDS: ALBUMIN HUMAN 25% 100 ML IV (03:45)
[2018-01-19] MEDS: LANSOPRAZOLE 30 MG CAP PO ×2 (05:39→17:01)
[2018-01-19] MEDS: FAMOTIDINE 20 MG INJ IV ×2 (08:11→20:20)
[2018-01-19] MEDS: ZINC OXIDE 20% 30 GM OINT TOP ×2 (08:11→20:21)
[2018-01-19] MEDS: CHOLECALCIFEROL 1,000 UNIT TAB PO ×2 (08:23→20:21)
[2018-01-19] MEDS: ATENOLOL 25 MG TAB PO ×2 (08:23→20:21)
[2018-01-19] MEDS: FISH OIL 1,000 MG CAP PO (08:23)
[2018-01-19] MEDS ORDERED: VITAMIN A & D 5 GM OINT PACKET TOP (09:46)
[2018-01-19] MEDS: BISACODYL 10 MG SUPP PR (10:03)
[2018-01-19] MEDS: ONDANSETRON 4 MG INJ IV (10:03)
[2018-01-19] MEDS: LEVOFLOXACIN 500MG/D5W (PMX) 100 ML IVPB (11:30)
[2018-01-20] MEDS: HYOSCYAMINE 0.125 MG TAB GTB ×3 (04:32→18:00)
[2018-01-20] MEDS: LANSOPRAZOLE 30 MG CAP PO ×2 (04:40→18:00)
[2018-01-20] MEDS: ATENOLOL 25 MG TAB PO ×2 (08:40→21:00)
[2018-01-20] MEDS: FISH OIL 1,000 MG CAP PO (08:40)
[2018-01-20] MEDS: CHOLECALCIFEROL 1,000 UNIT TAB PO ×2 (08:41→21:00)
[2018-01-20] MEDS: FAMOTIDINE 20 MG INJ IV ×2 (08:43→21:30)
[2018-01-20] MEDS: ZINC OXIDE 20% 30 GM OINT TOP ×2 (08:44→21:32)
[2018-01-20] MEDS: SOD CHLORIDE 0.9% 1,000 ML IV (11:17)
[2018-01-20] MEDS: morphine (DRIP) 100 MG/100 ML 100 ML IV ×2 (13:34→23:07)
[2018-01-21] MEDS: HYOSCYAMINE 0.125 MG TAB GTB ×4 (06:00→18:00)
[2018-01-21] MEDS: LANSOPRAZOLE 30 MG CAP PO ×2 (06:32→18:00)
[2018-01-21] MEDS: CHOLECALCIFEROL 1,000 UNIT TAB PO ×2 (09:00→21:00)
[2018-01-21] MEDS: ZINC OXIDE 20% 30 GM OINT TOP ×2 (09:00→21:31)
[2018-01-21] MEDS: ATENOLOL 25 MG TAB PO ×2 (09:00→21:00)
[2018-01-21] MEDS: FISH OIL 1,000 MG CAP PO (09:00)
[2018-01-21] MEDS: FAMOTIDINE 20 MG INJ IV ×2 (10:51→21:26)
[2018-01-21] MEDS: SOD CHLORIDE 0.9% 1,000 ML IV (10:52)
[2018-01-21 14:04] LABS: CREATININE, RANDOM URINE 149 mg/dL (20-370); MICROALBUMIN 0.6 mg/dL; MICROALBUMIN/CREATININE RATIO 4 (<30)
[2018-01-21 14:05] LABS: ALKALINE PHOSPHATASE 399 U/L (40-115); BONE ISOENZYMES 39 % (28-66); INTESTINAL ISOENZYMES 0 % (1-24); LIVER ISOENZYMES 61 % (25-69); PLACENTAL ISOENZYMES 0 % (0)
[2018-01-21 14:06] LABS: CREATININE, RANDOM URINE 130 mg/dL (20-370); MICROALBUMIN/CREATININE RATIO 15 (<30)
[2018-01-21] MEDS: morphine (DRIP) 100 MG/100 ML 100 ML IV (18:47)
[2018-01-21] MEDS ORDERED: ATROPINE 1% 5 ML OPH SL (20:00)
[2018-01-21] MEDS ORDERED: ALBUTEROL/IPRATROPIUM (NEB) 3 ML AMP HHN (20:00)
[2018-01-21] MEDS ORDERED: LEVALBUTEROL (NEB) 0.63 MG/3 ML AMP (21:45)
[2018-01-21] MEDS: LEVALBUTEROL (NEB) 0.63 MG/3 ML AMP HHN (21:50)
[2018-01-21] MEDS: ATROPINE 1% 5 ML OPH SL (22:40)
[2018-01-22] MEDS: LEVALBUTEROL (NEB) 0.63 MG/3 ML AMP HHN ×2 (04:31→14:42)
[2018-01-22] MEDS: HYOSCYAMINE 0.125 MG TAB GTB ×4 (06:00→18:00)
[2018-01-22] MEDS: LANSOPRAZOLE 30 MG CAP PO ×2 (06:00→18:00)
[2018-01-22] MEDS: morphine (DRIP) 100 MG/100 ML 100 ML IV (06:01)
[2018-01-22] MEDS: SOD CHLORIDE 0.9% 1,000 ML IV (08:06)
[2018-01-22] MEDS: CHOLECALCIFEROL 1,000 UNIT TAB PO (08:07)
[2018-01-22] MEDS: ATENOLOL 25 MG TAB PO (08:07)
[2018-01-22] MEDS: FISH OIL 1,000 MG CAP PO (08:07)
[2018-01-22] MEDS: FAMOTIDINE 20 MG INJ IV (08:45)
[2018-01-22] MEDS: ZINC OXIDE 20% 30 GM OINT TOP (08:45)
[2018-01-22] MEDS: ATROPINE 1% 5 ML OPH SL (14:17)
== END 2018-01-22 21:10 | disposition expired | DRG 356 ==
LOC: E/R 13:25 → TEL 15:40
PROC: 0W9G3ZX Drainage of Peritoneal Cavity, Percutaneous Approach, Diagnostic (ICD-10-PCS; principal; 2018-01-03 15:45)
PROC: 06H03DZ Insertion of Intraluminal Device into Inferior Vena Cava, Percutaneous Approach (ICD-10-PCS; 2018-01-03 15:45)
PROC: 0W9G3ZX Drainage of Peritoneal Cavity, Percutaneous Approach, Diagnostic (ICD-10-PCS; 2018-01-03 15:45)
PROC: 0DH68UZ Insertion of Feeding Device into Stomach, Via Natural or Artificial Opening Endoscopic (ICD-10-PCS; 2018-01-03 15:45)
DX: K22.2 Esophageal obstruction (principal); E43 Unspecified severe protein-calorie malnutrition; J18.9 Pneumonia, unspecified organism; K65.2 Spontaneous bacterial peritonitis; A41.9 Sepsis, unspecified organism; C15.9 Malignant neoplasm of esophagus, unspecified; R18.0 Malignant ascites; E87.2 Acidosis; R64 Cachexia; R65.10 Systemic inflammatory response syndrome (SIRS) of non-infectious origin without acute organ dysfunction; E87.1 Hypo-osmolality and hyponatremia; C78.7 Secondary malignant neoplasm of liver and intrahepatic bile duct; C16.9 Malignant neoplasm of stomach, unspecified; E87.0 Hyperosmolality and hypernatremia; I82.413 Acute embolism and thrombosis of femoral vein, bilateral; R13.10 Dysphagia, unspecified; I10 Essential (primary) hypertension; R16.2 Hepatomegaly with splenomegaly, not elsewhere classified; I48.0 Paroxysmal atrial fibrillation; K21.9 Gastro-esophageal reflux disease without esophagitis; Z68.27 Body mass index [BMI] 27.0-27.9, adult; E86.0 Dehydration; D64.9 Anemia, unspecified; R00.0 Tachycardia, unspecified; E88.09 Other disorders of plasma-protein metabolism, not elsewhere classified; N50.89 Other specified disorders of the male genital organs; B95.2 Enterococcus as the cause of diseases classified elsewhere; B96.89 Other specified bacterial agents as the cause of diseases classified elsewhere; Z66 Do not resuscitate
CPT/HCPCS: 36415; 71045; 71250; 74018; 74176; 75940; 76705; 76870; 80048; 80053; 80076; 80202; 81001; 81003; 82040; 82042; 82043; 82105; 82150; 82306; 82378; 82607; 82728; 82746; 82962; 82977; 83036; 83540; 83605; 83615; 83735; 83935; 84080; 84100; 84132; 84133; 84155; 84300; 84443; 84484; 84560; 85025; 85045; 85610; 85651; 85730; 86850; 86900; 86901; 87040; 87070; 87086; 87102; 87116; 88104; 88305; 89051; 92610; 93005; 93306; 93970; 94640; 94664; 96365; 97110; 97162; 97530; 99291-25